=== PATIENT | female | born 1990 | race Caucasian/White ===

== ENCOUNTER 2019-05-30 09:01 | Emergency (ER) | payer SELFPAY ==
[2019-05-30] MEDS ORDERED: 0.9 % SODIUM CHLORIDE 1000ML 1,000 ML IV ONE (09:14)
--- NOTE | 2019-05-30 09:30 | Emergency Department Record ---
History of Present Illness - General Chief Complaint: Cough Stated Complaint: ASHLEY/MAYBE HAVE A UTI Time Seen by Provider: 05/30/19 09:13 Source: Patient Mode of Arrival: Ambulatory Limitations: No limitations - History of Present Illness Initial Comments: 28 yo female presents with a cough for about a week. She has not felt well for about 1.5 weeks since getting out of long term. She had been in long term the prior 40 days. She reports green sputum. No blood. She admits to substance abuse issue with heroin and methamphetamines. She does not think she has had any fevers. She has had nausea and poor appetite. No current rash. She has had abscesses in the past. She has had some diarrhea. No blood in the stools or urine. She has a sensation of urinary frequency. No headache. She has not seen a PCP in a couple years. 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 She has not been on hydroxyurea for 102 years. She has an appointment to see a new PCP at [facility] and will be a new referral to hematology. She is a smoker. She has a history of Hepatitis C. Complaint: Cough Onset/Timin -: Week(s) Severity: Moderate Quality: Aching Consistency: Intermittent Improves With: Nothing Context: Other Associated Symptoms: Cough - Related Data Previous Rx's Medication Instructions Recorded Doxycycline Hyclate 100 mg PO BID #14 cap 05/30/19 Allergies Allergy/AdvReac Type Severity Reaction Status Date / Time No Known Drug Allergies Allergy Verified 05/30/19 09:14 Travel Screening - Travel/Exposure Within Last 30 Days Have you traveled within the last 30 days?: No Review of Systems Constitutional: Reports: Fever. Denies: Chills, Weakness Eyes: Denies: Eye discharge ENT: Denies: Congestion, Ear pain Respiratory: Reports: Cough, Dyspnea. Denies: Hemoptysis, Stridor, Wheezes Cardiovascular: Reports: Palpitations. Denies: Chest pain, Edema, Syncope Endocrine: Reports: Fatigue Gastrointestinal: Reports: Nausea. Denies: Abdominal pain, Diarrhea, Vomiting Genitourinary: Reports: Dysuria, Frequency Musculoskeletal: Denies: Arthralgia, Back pain, Neck pain Skin: Denies: Bruising, Change in color, Rash Neurological: Denies: Headache Psychiatric: Reports: Anxiety Hematological/Lymphatic: Denies: Easy bleeding, Easy bruising Past Medical History - SOCIAL HISTORY Smoking Status: Current every day smoker Alcohol Use: None Drug Use: Heavy - RESPIRATORY Hx Respiratory Disorders: Yes Hx Asthma: Yes - CARDIOVASCULAR Hx Cardio Disorders: No - NEURO Hx Neuro Disorders: No - GI Hx GI Disorders: Yes Hx Liver Disease: Yes (hep c) - Hx Genitourinary Disorders: No - ENDOCRINE Hx Endocrine Disorders: No - MUSCULOSKELETAL Hx Musculoskeletal Disorders: No - PSYCH Hx Psych Problems: No - HEMATOLOGY/ONCOLOGY Hx Hematology/Oncology Disorders: Yes Comment:: essential thrombocytosis Family Medical History Any Significant Family History?: No Physical Exam - General General Appearance: Alert, Oriented x3, Cooperative, No acute distress Limitations: No limitations - Head Head exam: Atraumatic, Normal inspection - Eye Eye exam: Normal appearance, PERRL. negative: Conjunctival injection, Scleral icterus - ENT ENT exam: Normal exam, Mucous membranes moist, Normal orophraynx Ear exam: Normal external inspection Nasal Exam: Normal inspection Mouth exam: Normal external inspection - Neck Neck exam: Normal inspection - Respiratory Respiratory exam: Normal lung sounds bilaterally. negative: Accessory muscle use, Decreased breath sounds, Prolonged expiratory, Respiratory distress, Rhonchi, Stridor, Wheezes - Cardiovascular Cardiovascular Exam: Normal rhythm, Tachycardia. negative: Regular rate, Diasto lic murmur, Systolic murmur Peripheral Pulses: 2+: Radial (R), Radial (L) - GI/Abdominal GI/Abdominal exam: Soft. negative: Tenderness - Rectal Rectal exam: Deferred - exam: Deferred - Extremities Extremities exam: Normal inspection. negative: Pedal edema, Tenderness - Back Back exam: Denies: CVA tenderness (R), CVA tenderness (L) - Neurological Neurological exam: Alert, Oriented X3 - Psychiatric Psychiatric exam: Anxious - Skin Skin exam: Dry, Intact, Normal color, Warm Course Vital Signs 05/30/19 09:11 Temperature 99.3 F Pulse Rate 149 H Respiratory 20 Rate Blood Pressure 150/104 Pulse Ox 99 - Reevaluation(s) Reevaluation #1: The CBC was reviewed The WBC is normal The Plt Count is 1191 On the EMR on 03-18-18 the platelet count was 1165 05/30/19 10:09 05/30/19 10:56 UDS is positive for Opiates and Methamphetamine HR still elevated at 130's The CXR was reviewed and is negative for acute process 05/30/19 11:08 EKG #1: 10:55 Rate: 116 Rhythm: sinus tachycardia Cubero: normal Intervals: normal ST segments: normal Prior: none 05/30/19 11:52 I recommend admission/transfer given her symptoms, HR, elevated platelet cough. The patient refuses both. Following discussion with the patient, the patient reports that they want to leave at this time. Risks of , permanent impairment, or worsening of the current condition were discussed as well as the benefit of further observation a nd admission for further evaluation of the presenting symptoms. She verbalizes understanding of the risks and benefits, but still desires to leave AMA despite these risks. Based on my examination, the patient is alert, oriented, and answers all questions appropriately. Patient appears to have the capacity to make rational decisions based on my examination. Patient was encouraged to return to the ED immediately if they change their mind about treatment and want to be re-evaluated. She does have a plan to follow including calling her new PCP office at the [facility]. She states she will present to [facility] ED if she feels worse or changes her mind. It was made clear she could return here at any time if she needs assistance. Medical Decision Making - Lab Data Result diagrams: 05/30/19 09:40 05/30/19 09:40 Disposition Disposition: Discharge Clinical Impression: Thrombocytosis, Bronchitis, Tachycardia, Substance abuse Disposition: Against Medical Advice Condition: (3) Guarded Instructions: Polysubstance Abuse (ED), Against Medical Advice (ED) Additional Instructions: You are signing out today AMA You may return anytime for evaluation I strongly recommend to call your doctor or go to a hospital if you change your mind Take the antibiotic as directed Prescriptions: Doxycycline Hyclate 100 mg PO BID #14 cap Forms: Patient Portal Access Time of Disposition: 11:56 Quality - Quality Measures Quality Measures: N/A - Blood Pressure Screening Does Patient Have Any of the Following: No Blood Pressure Classification: Hypertensive Reading Systolic Measurement: 150 Diastolic Measurement: 104 Screening for High Blood Pressure: < Pre-Hypertensive BP, F/U Documented > [[id number]] Pre-Hypertensive Follow-up Interventions: Referral to alternative/primary care provider.
[2019-05-30 09:45] LABS: URINE APPEARANCE CLOUDY; URINE BILIRUBIN SMALL (NEGATIVE); URINE BLOOD NEGATIVE (NEGATIVE); URINE COLOR YELLOW; URINE GLUCOSE (UA) NEGATIVE (NEGATIVE); URINE KETONE TRACE (NEGATIVE); URINE LEUKOCYTE ESTERASE NEGATIVE (NEGATIVE); URINE NITRITE NEGATIVE (NEGATIVE); URINE PROTEIN TRACE (NEGATIVE)
[2019-05-30 09:49] LABS: URINE AMORPHOUS SEDIMENT 4+; URINE RBC NONE SEEN (NONE SEEN); URINE WBC NONE SEEN (0-2/hpf)
[2019-05-30 09:55] LABS: ABSOLUTE NEUTROPHIL COUNT 9.33; HEMATOCRIT 37.4 % (35.0-47.0); HEMOGLOBIN 12.2 gm/dl (11.6-16.0); MEAN CELL VOLUME 84.6 fl (81-97); MEAN CORPUSCULAR HEMOGLOBIN 27.6 pg (27-33); MEAN CORPUSCULAR HGB CONC 32.6 g/dl (32-36); MEAN PLATELET VOLUME 8.7 fl (7.4-10.4); RED BLOOD COUNT 4.42 M/uL (3.80-5.40); RED CELL DISTRIBUTION WIDTH 15.3 % (11.5-14.5); WHITE BLOOD COUNT W/O DIFF 11.6 K/uL (4.2-12.2)
[2019-05-30 09:56] LABS: HCG,QUALITATIVE URINE NEGATIVE (NEGATIVE)
[2019-05-30 10:00] LABS: PLATELET COUNT 1191 K/uL (130-400)
[2019-05-30 10:01] LABS: AMPHETAMINE SCREEN URINE DETECTED; BARBITURATE SCREEN URINE NOT DETECTED; BENZODIAZEPINE SCREEN URINE NOT DETECTED; METHADONE SCREEN URINE NOT DETECTED; OPIATE SCREEN URINE DETECTED; THC SCREEN URINE NOT DETECTED; TRICYCLIC ANTIDEPRESSANT SCRN NOT DETECTED
[2019-05-30 10:02] LABS: COCAINE SCREEN URINE NOT DETECTED; METHAMPHETAMINE SCREEN DETECTED; OXYCODONE SCREEN URINE NOT DETECTED; PHENCYCLIDINE SCREEN URINE NOT DETECTED; PROPOXYPHENE SCREEN URINE NOT DETECTED
[2019-05-30 10:03] LABS: BLOOD UREA NITROGEN 25 mg/dL (6-20); CREATININE 0.7 mg/dL (0.5-0.9); EST GLOMERULAR FILTRATION RATE > 60 mL/min; TOTAL PROTEIN 8.5 g/dL (6.6-8.7)
[2019-05-30 10:05] LABS: GLUCOSE,RANDOM 99 mg/dL (74-109)
[2019-05-30 10:08] LABS: ALB/GLOB RATIO 1.3 (1.1-1.8); ALBUMIN 4.8 g/dL (4.0-5.0); ALKALINE PHOSPHATASE 73 U/L (35-104); ALT/SGPT 32 U/L (<33); AST/SGOT 39 U/L (10.0-35.0)
[2019-05-30 10:12] LABS: PLATELET ESTIMATE INCREASED (NORMAL)
[2019-05-30] MEDS ORDERED: LORAZEPAM 2 MG/ML VIAL IV ONE (10:23)
--- NOTE | 2019-05-30 10:31 | RADIOLOGY REPORT ---
EXAMINATION: Two View Chest Radiographs EXAM DATE: 05/30/2019 10:14 AM TECHNIQUE: Frontal and lateral views INDICATION: cough COMPARISON: None ENCOUNTER: Not applicable FINDINGS: The heart, mediastinum, and pulmonary vasculature are normal. No lung consolidation or pleural effu sions are present. Mild hyperinflation. No pneumothorax. IMPRESSION: Mild COPD. Dictated by: Jimmie Wilde DO on 05/30/2019 10:28 AM. .
== END 2019-05-30 12:05 | disposition left against medical advice (07) ==
LOC: ER 09:01
DX: D47.3 Essential (hemorrhagic) thrombocythemia (principal); J20.9 Acute bronchitis, unspecified; I47.2 Ventricular tachycardia; R11.0 Nausea; R19.7 Diarrhea, unspecified; F17.210 Nicotine dependence, cigarettes, uncomplicated; F15.10 Other stimulant abuse, uncomplicated; F11.10 Opioid abuse, uncomplicated
CPT/HCPCS: 71046; 80053; 80305; 81001; 81025; 85027; 93005; 93010; 96361; 96374; 99284; J7030